=== PATIENT | male | born 1980 | race Caucasian/White ===

== ENCOUNTER 2023-07-21 20:48 | Observation (INO) | payer BC ==
[~2023-07-21] VITALS: Ht 175.3 cm; Wt 99.6 kg
[2023-07-21] MEDS ORDERED: MORPHINE 4 MG/ML 1ML VIAL IV ONE (21:40)
[2023-07-21 21:59] LABS: BASO # 0.1 10^3/uL (0.0-0.2); BASO % 0.5 % (0.0-1.0); EOS # 0.1 10^3/uL (0.0-0.5); EOS % 0.7 % (0.0-3.0); HEMOGLOBIN 14.8 g/dl (13.5-17.5); LYMPH % 13.2 % (24.0-44.0); MEAN CORPUSCULAR HGB CONC 34.4 g/dl (32.0-36.5); MEAN CORPUSCULAR VOLUME 87.2 fl (80.0-96.0); MONO % 6.7 % (2.0-8.0); NEUTROPHILS # 11.6 10^3/uL (1.5-8.5); NEUTROPHILS % 78.4 % (36.0-66.0); PLATELET COUNT, AUTOMATED 300 10^3/uL (150-450); RED BLOOD COUNT 4.93 10^6/uL (4.30-6.10); WHITE BLOOD COUNT 14.8 10^3/uL (4.0-10.0)
[2023-07-21 22:19] LABS: ALBUMIN 4.5 G/DL (3.2-5.2); ALKALINE PHOSPHATASE 90 U/L (46-116); ALT/SGPT 33 U/L (7.0-40); AST/SGOT 24 U/L (<34); BILIRUBIN,TOTAL 0.5 MG/DL (0.3-1.2); BLOOD UREA NITROGEN 13 MG/DL (9-23); CALCIUM LEVEL 9.7 MG/DL (8.5-10.1); CARBON DIOXIDE LEVEL 25 MMOL/L (20-31); CHLORIDE LEVEL 103 MMOL/L (98-107); CREATININE FOR GFR 0.97 MG/DL (0.70-1.30); GLOMERULAR FILTRATION RATE > 60.0 (>60); GLUCOSE, FASTING 98 MG/DL (60-100); SODIUM LEVEL 140 MMOL/L (136-145); TOTAL PROTEIN 7.3 G/DL (5.7-8.2)
[2023-07-21 22:30] LABS: RSV AMPLIFICATION NEGATIVE (NEGATIVE)
[2023-07-21] MEDS: HYDROMORPHONE HCL 0.5 MG/ 0.5 ML SYRINGE IV PRN ×2 (22:40→23:38)
[2023-07-21] MEDS ORDERED: HYDROmorphone HCL 2MG/ML 1ML VIAL IV PRN (23:55)
[2023-07-22] VITALS (11 sets, daily range): BP systolic 98–146; BP diastolic 50–91; TEMP 97.3–98.6; O2SAT 95–98
[2023-07-22] MEDS ORDERED: HOME MED LIST COMPLETE! XX SCH (00:20)
[2023-07-22] MEDS: ONDANSETRON 4MG 2ML VIAL IV PRN ×2 (00:46→19:34)
[2023-07-22] MEDS: ACETAMINOPHEN TAB 650MG DOSE (2X325MG) PO PRN ×2 (02:02→07:39)
[2023-07-22] MEDS: HYDROMORPHONE HCL 0.5 MG/ 0.5 ML SYRINGE IV PRN ×5 (02:40→12:49)
[2023-07-22] MEDS: FOLIC ACID 1MG TAB PO SCH (09:04)
[2023-07-22] MEDS: MULTIVITAMINS/MINERALS THERAP 1 TAB PO SCH (09:04)
[2023-07-22] MEDS: THIAMINE 100 MG TAB PO SCH ×2 (09:04→21:00)
[2023-07-22] MEDS ORDERED: fentaNYL 100 MCG/2 ML INJECTION As Ordered ONE (10:49)
[2023-07-22] MEDS ORDERED: MIDAZOLAM INJ 2MG/2ML VIAL As Ordered ONE (10:49)
[2023-07-22] MEDS ORDERED: propofoL 200 MG/20 ML VIAL As Ordered ONE (10:49)
[2023-07-22] MEDS ORDERED: LIDOCAINE 2% 100MG/5ML SDV (FOR ANES.) As Ordered ONE (10:49)
[2023-07-22] MEDS ORDERED: KETOROLAC 60MG 2ML VIAL As Ordered ONE (10:50)
[2023-07-22] MEDS ORDERED: ONDANSETRON 4MG 2ML VIAL As Ordered ONE (10:50)
[2023-07-22] MEDS ORDERED: ceFAZolin 2 GM/D5W 50 ML IV BAG As Ordered ONE (10:52)
[2023-07-22] MEDS ORDERED: ACETAMINOPHEN 1000MG 100ML IV BAG As Ordered ONE (11:26)
[2023-07-22] MEDS ORDERED: fentaNYL 100 MCG/2 ML INJECTION IV PRN (12:15)
[2023-07-22] MEDS ORDERED: LR 1,000 ML IV SCH (12:15)
[2023-07-22] MEDS ORDERED: ONDANSETRON 4MG 2ML VIAL IV PRN (12:15)
[2023-07-22] MEDS: oxyCODONE 5MG TAB PO PRN ×2 (12:41→13:14)
[2023-07-22] MEDS ORDERED: METOCLOPRAMIDE INJ 10MG/2ML VIAL IV ONE (13:20)
[2023-07-22] MEDS ORDERED: MORPHINE 4 MG/ML 1ML VIAL IV PRN (14:45)
[2023-07-22] MEDS ORDERED: IBUPROFEN 600MG TAB PO PRN (19:00)
[2023-07-22] MEDS: ceFAZolin SOD 1 GM in D5W MINI-BAG PLUS 50 ML IV SCH (19:34)
[2023-07-23 01:05] VITALS: BP 113/66; TEMP 97.5; O2SAT 95
[2023-07-23] MEDS: oxyCODONE 5MG TAB PO PRN ×3 (01:11→11:53)
[2023-07-23] MEDS: ACETAMINOPHEN TAB 650MG DOSE (2X325MG) PO PRN ×2 (01:11→08:56)
[2023-07-23] MEDS: ceFAZolin SOD 1 GM in D5W MINI-BAG PLUS 50 ML IV SCH ×2 (04:19→11:54)
[2023-07-23 06:00] VITALS: BP 113/66
[2023-07-23 06:41] VITALS: BP 118/80; TEMP 98.6; O2SAT 97
[2023-07-23] MEDS: THIAMINE 100 MG TAB PO SCH (08:55)
[2023-07-23] MEDS: MULTIVITAMINS/MINERALS THERAP 1 TAB PO SCH (08:55)
[2023-07-23] MEDS: FOLIC ACID 1MG TAB PO SCH (08:55)
[2023-07-23] MEDS ORDERED: ASPIRIN 81MG ENTERIC TABLET PO SCH (09:00)
[2023-07-23 10:05] VITALS: BP 118/79; TEMP 98.4; O2SAT 98
[2023-07-23] MEDS ORDERED: ECOT81TA5 PO (11:42)
[2023-07-23] MEDS ORDERED: PERC5TAB12 PO (11:42)
[2023-07-28] MEDS ORDERED: GABA-282 PO (14:09)
[2023-07-28] MEDS ORDERED: CEPH250T PO (14:09)
[2023-07-28] MEDS ORDERED: OXYC-517 PO (14:09)
[2023-08-03] MEDS ORDERED: COLA100C5 PO (07:57)
[2023-08-03] MEDS ORDERED: ACET500P3 PO (07:57)
[2023-08-03] MEDS ORDERED: IBUP-1114 PO (07:57)
== END 2023-07-23 14:30 | disposition home or self-care (01) ==
LOC: EDBD 20:48 → M ED 20:48 → M ED INP 20:49 → ENRESERVDT 07-22 01:19 → ENRESERVTM 07-22 01:19 → M MS5PR 07-22 01:47
PROVIDERS: ADMIT Internal Medicine; ATTEND Internal Medicine
DX: S82.301A Unspecified fracture of lower end of right tibia, initial encounter for closed fracture (principal); W13.2XXA Fall from, out of or through roof, initial encounter; Y92.018 Other place in single-family (private) house as the place of occurrence of the external cause; F10.20 Alcohol dependence, uncomplicated; F17.220 Nicotine dependence, chewing tobacco, uncomplicated; F12.10 Cannabis abuse, uncomplicated; Y99.9 Unspecified external cause status; Y93.H9 Activity, other involving exterior property and land maintenance, building and construction
CPT/HCPCS: 20692; 73560; 73590; 73610; 73620; 73700; 76000; 80053; 82077; 85025; 87631; 96365; 96366; 96375; 96376; 97116; 97161; 99285; C1713; J0131; J0665; J0690; J1100; J1170; J1885; J2250; J2405; J2765; J3010

== ENCOUNTER 2023-08-05 13:59 | Observation (INO) | payer BC ==
[~2023-08-05] VITALS: Ht 180.3 cm; Wt 93.4 kg
[~2023-08-05 13:59] MED LIST: ACET500P3 PO; CEPH250T PO; COLA100C5 PO; ECOT81TA5 PO; GABA-282 PO; IBUP-1114 PO; OXYC-517 PO; PERC5TAB12 PO
[2023-08-05] MEDS ORDERED: CLINDAMYCIN 600MG/50ML PREMIX BAG As Ordered ONE (17:09)
[2023-08-05] MEDS ORDERED: MORPHINE 4 MG/ML 1ML VIAL IV ONE (17:20)
[2023-08-05] MEDS ORDERED: ACETAMINOPHEN *IV* 1,000 MG in IV 1 EA IV ONE (17:20)
[2023-08-05] MEDS ORDERED: TRANEXAMIC ACID 100 MG/ML 10ML VIAL As Ordered ONE ×3 (18:15→21:04)
[2023-08-05] MEDS ORDERED: ceFAZolin 2 GM/D5W 50 ML IV BAG As Ordered ONE (18:16)
[2023-08-05] MEDS ORDERED: propofoL 200 MG/20 ML VIAL As Ordered ONE (18:20)
[2023-08-05] MEDS ORDERED: LIDOCAINE 2% 100MG/5ML SDV (FOR ANES.) As Ordered ONE (18:20)
[2023-08-05] MEDS ORDERED: ONDANSETRON 4MG 2ML VIAL As Ordered ONE (18:20)
[2023-08-05] MEDS ORDERED: SUGAMMADEX SODIUM 500 MG/5 ML VIAL (BRIDION) As Ordered ONE (18:20)
[2023-08-05] MEDS ORDERED: ROCURONIUM BROMIDE 50MG/5ML VIAL As Ordered ONE ×2 (18:20→19:46)
[2023-08-05] MEDS ORDERED: MIDAZOLAM INJ 2MG/2ML VIAL As Ordered ONE (18:20)
[2023-08-05] MEDS ORDERED: fentaNYL 250 MCG/5 ML INJECTION As Ordered ONE (18:20)
[2023-08-05] MEDS ORDERED: dexmedeTOMIDine (4MCG/ML)200MCG/50ML BTL (PRECEDEX) As Ordered ONE (18:23)
[2023-08-05] MEDS ORDERED: HYDROmorphone HCL 2MG/ML 1ML VIAL As Ordered ONE (19:13)
[2023-08-05] MEDS ORDERED: KETOROLAC 60MG 2ML VIAL As Ordered ONE (19:47)
[2023-08-05] MEDS ORDERED: ACETAMINOPHEN 1000MG 100ML IV BAG As Ordered ONE (20:52)
[2023-08-05] MEDS ORDERED: VANCOMYCIN 1000MG/20ML VIAL As Ordered ONE ×2 (21:08→21:20)
[2023-08-05] MEDS ORDERED: fentaNYL 100 MCG/2 ML INJECTION IV PRN (22:00)
[2023-08-05] MEDS ORDERED: LR 1,000 ML IV SCH (22:00)
[2023-08-05] MEDS ORDERED: ONDANSETRON 4MG 2ML VIAL IV PRN ×3 (22:00→23:35)
[2023-08-05] MEDS ORDERED: oxyCODONE 5MG TAB PO PRN (23:00)
[2023-08-05] MEDS ORDERED: HYDROMORPHONE HCL 0.5 MG/ 0.5 ML SYRINGE IV PRN (23:00)
[2023-08-05] MEDS ORDERED: METOCLOPRAMIDE INJ 10MG/2ML VIAL IV PRN (23:00)
[2023-08-05] MEDS ORDERED: MEPERIDINE 25 MG/ML 1ML VIAL IV PRN (23:00)
[2023-08-05] MEDS ORDERED: MORPHINE 2 MG/ML 1ML VIAL IV PRN (23:00)
[2023-08-05 23:33] VITALS: BP 134/84; TEMP 97.5; O2SAT 97
[2023-08-05] MEDS ORDERED: MORPHINE 4 MG/ML 1ML VIAL IV PRN (23:35)
[2023-08-05] MEDS ORDERED: PERCOCET 5MG/325MG TAB PO PRN ×2 (23:35)
[2023-08-05] MEDS ORDERED: ACETAMINOPHEN TAB 650MG DOSE (2X325MG) PO PRN (23:35)
[2023-08-06] VITALS (10 sets, daily range): BP systolic 111–144; BP diastolic 76–97; TEMP 96.8–98.1; O2SAT 87–98
[2023-08-06] MEDS ORDERED: IBUPROFEN 800 MG TAB PO SCH (08:00)
[2023-08-06] MEDS ORDERED: ASPIRIN 81MG CHEW TABLET PO SCH (09:00)
[2023-08-06] MEDS ORDERED: GABA-282 PO (11:20)
[2023-08-06] MEDS ORDERED: OXYC-517 PO (11:20)
[2023-08-06] MEDS ORDERED: IBUP-1114 PO (11:20)
== END 2023-08-06 13:20 | disposition home or self-care (01) ==
LOC: M SDC 13:59 → M MS5PR 23:20
PROVIDERS: ADMIT Internal Medicine; ATTEND Internal Medicine Nephrology
DX: S82.871A Displaced pilon fracture of right tibia, initial encounter for closed fracture (principal); W13.2XXA Fall from, out of or through roof, initial encounter; Y93.H9 Activity, other involving exterior property and land maintenance, building and construction; Y92.018 Other place in single-family (private) house as the place of occurrence of the external cause; Y99.9 Unspecified external cause status; F12.10 Cannabis abuse, uncomplicated; Z79.82 Long term (current) use of aspirin; Z79.899 Other long term (current) drug therapy; F10.20 Alcohol dependence, uncomplicated; F17.220 Nicotine dependence, chewing tobacco, uncomplicated
CPT/HCPCS: 20694; 27827; 76000; C1713; C9290; J0131; J0665; J0690; J1100; J1170; J1885; J2250; J2405; J3010; J3370

== ENCOUNTER → 2023-08-25 | Outpatient (CLI) | payer BC | LOC: M SOG 10:10 | PROVIDERS: ATTEND Physician Assistant | DX: S82.871A Displaced pilon fracture of right tibia, initial encounter for closed fracture (principal); Y93.9 Activity, unspecified; Y92.9 Unspecified place or not applicable ==

== ENCOUNTER → 2023-10-12 | Outpatient (CLI) | payer BC | LOC: M SOG 07:52 | PROVIDERS: ATTEND Physician Assistant | DX: S82.871D Displaced pilon fracture of right tibia, subsequent encounter for closed fracture with routine healing (principal); W18.30XD Fall on same level, unspecified, subsequent encounter ==

== ENCOUNTER → 2024-02-02 | Outpatient (CLI) | payer BC | LOC: M SOG 09:56 | PROVIDERS: ATTEND Physician Assistant | DX: S82.871D Displaced pilon fracture of right tibia, subsequent encounter for closed fracture with routine healing (principal) ==

== ENCOUNTER → 2024-03-02 | Outpatient (CLI) | payer BC ==
[2024-03-02 15:56] LABS: MEAN CORPUSCULAR HEMOGLOBIN 28.9 pg (27.0-33.0); MEAN CORPUSCULAR HGB CONC 32.6 g/dl (32.0-36.5); MEAN CORPUSCULAR VOLUME 88.6 fl (80.0-96.0); PLATELET COUNT, AUTOMATED 309 10^3/uL (150-450); RED BLOOD COUNT 5.19 10^6/uL (4.30-6.10); WHITE BLOOD COUNT 6.2 10^3/uL (4.0-10.0)
[2024-03-02 16:16] LABS: CALCIUM LEVEL 9.4 MG/DL (8.5-10.1)
[2024-03-02 16:24] LABS: TOTAL 25(OH) VITAMIN D 15.5 NG/ML (20.0-100.0)
== END ==
LOC: M PLALAB 11:53
PROVIDERS: ATTEND Orthopaedic Surgery
DX: S82.871D Displaced pilon fracture of right tibia, subsequent encounter for closed fracture with routine healing (principal)

== ENCOUNTER → 2024-06-21 | Outpatient (CLI) | payer BC | LOC: M SOG 07:22 | PROVIDERS: ATTEND Physician Assistant | DX: S82.871D Displaced pilon fracture of right tibia, subsequent encounter for closed fracture with routine healing (principal) ==